=== PATIENT | female | born 1945 | race Caucasian/White ===

== ENCOUNTER → 2021-01-17 | Outpatient (CLI) | payer OTHER ==
[~2021-01-17] MED LIST: CRESTOR10 MG PO; DELSYM30 MG/5 M1; DITROPAN XL5 M1; DULERA 100 MCG/13 GM; FIRST-OMEPR2 MG/1 ML; HYDROXYZINE HCL25 M2 GT; IMDUR 30 MG TAB30 M1 PO; LIPITOR40 MG PO; LOPRESSOR25 PO; NITROGLYCERIN0.4 MG SUBLING; NORCO 5-325 TA1 EACH PO; OXYBUTIN PO; OXYBUTYNIN 5 MG5 M2 PO; PERCOCET 5-3251 EACH PO; PLAVIX 75 MG TA75 M1 PO; PRILOSEC 10MG C10 M1 PO; PROTONIX40 M1 PO; REQUIP 1 MG TABL1 M1 PO; XOPENEX0.31 MG/3
[2021-01-17 10:26] LABS: CREATININE 0.9 mg/dL (0.6-1.0)
== END ==
LOC: CAT 09:34
PROVIDERS: ATTEND Surgery Vascular Surgery
DX: I65.23 Occlusion and stenosis of bilateral carotid arteries (principal); I67.82 Cerebral ischemia; G31.89 Other specified degenerative diseases of nervous system; I70.0 Atherosclerosis of aorta; J43.9 Emphysema, unspecified

== ENCOUNTER → 2021-01-29 | Outpatient (CLI) | payer OTHER ==
[~2021-01-29] MED LIST changes: +ASA81BEC PO; +CHLOR-TABLET4 MG PO; +LIPITOR 20 MG T20 M1 PO; +MUPIROCIN1 GM NARES; +PLAVIX 75 MG TA75 MG PO
[2021-01-29 11:34] LABS: URINE BILIRUBIN NEGATIVE (Negative); URINE BLOOD 2+ (Negative); URINE CLARITY CLEAR; URINE COLOR YELLOW; URINE GLUCOSE-RANDOM* NEGATIVE (Negative); URINE KETONES NEGATIVE (Negative); URINE LEUKOCYTES-REFLEX TRACE (Negative); URINE NITRITE-REFLEX NEGATIVE (Negative); URINE PROTEIN (DIPSTICK) NEGATIVE (Negative); URINE UROBILINOGEN 0.2 E.U./dl (0.2-1.0)
[2021-01-29 11:36] LABS: ABSOLUTE NEUTROPHILS 6.1 thou/uL (1.4-8.2); BASOPHILS 0.8 % (0.0-2.0); EOSINOPHILS 1.1 % (0.0-3.0); HEMATOCRIT 41.2 % (37.0-47.0); HEMOGLOBIN 13.4 gm/dL (12.0-15.0); LYMPHOCYTES 25.7 % (24.0-44.0); MCH 28.7 pg (26.0-34.0); MCHC 32.6 g/dL (28.0-37.0); MONOCYTES 5.7 % (1.0-8.0); PLATELET COUNT 333 thou/uL (150-400); POLYS 66.7 % (36.0-66.0); RBC 4.68 mil/uL (4.20-5.00); RDW 15.8 % (10.5-14.5); WBC 9.1 thou/uL (4.0-11.0)
[2021-01-29 11:45] LABS: BACTERIA-REFLEX 1-9 Few /HPF (None Seen); CASTS None Seen /LPF (None Seen); CRYSTALS None Seen /LPF (None Seen); SQUAMOUS 0-3 Few /LPF (0-3); URINE RBC 3-10 Few /HPF (NONE SEEN); URINE WBC-REFLEX 0-5 Rare /HPF (0-5)
[2021-01-29 11:47] LABS: APTT 28.3 Seconds (24.5-32.8); INR 0.95; PROTIME 10.4 Seconds (10.5-12.1)
[2021-01-29 11:48] LABS: ALBUMIN 3.9 g/dL (3.4-5.0); CALCIUM 9.8 mg/dL (8.5-10.1); CREATININE 0.8 mg/dL (0.6-1.0); POTASSIUM 3.7 mmol/L (3.5-5.1); TOTAL BILIRUBIN 0.3 mg/dL (0.2-1.0); TOTAL PROTEIN 7.7 g/dL (6.4-8.2)
== END ==
LOC: PAC 10:41
PROVIDERS: ATTEND Surgery Vascular Surgery
DX: Z01.818 Encounter for other preprocedural examination (principal); I65.29 Occlusion and stenosis of unspecified carotid artery

== ENCOUNTER 2021-02-21 06:13 | Inpatient (IN) | payer OTHER ==
[~2021-02-21] VITALS: Ht 157.5 cm; Wt 55.3 kg
[2021-02-21 07:34] VITALS: BP 145/58
[2021-02-21 13:22] VITALS: BP 113/44
--- NOTE | 2021-02-21 14:28 | NUR ---
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 FOR EtCO2 NASAL CANNULA.--VW
[2021-02-21 14:43] LABS: BE(vivo) -4.9 mmol/L (-2 to +3); PO2 91.3 mmHg (80.0-100.0); pH 7.317 (7.360-7.450); sO2 96.4 % (92.0-98.0)
--- NOTE | 2021-02-21 14:58 | O ---
[facility] [place] [address] OPERATIVE REPORT Name: CHRISTINA MARMOLEJO Room #: 251-P ADM IN M.R.#: [id number] Admission: 02/21/21 Attend Phys: Nicolás Ribeiro MD Discharge: Date of : 49 Report #: [id number] THIS REPORT FOR: cc: Jessica Mccann MD, Katrina MD Forman,Nicolás Handley MD ~ DATE OF SERVICE: 02/21/2021 PREOPERATIVE DIAGNOSIS: Left carotid artery stenosis. POSTOPERATIVE DIAGNOSIS: Left carotid artery stenosis. OPERATION: Left carotid endarterectomy with patch closure. SURGEON: Nicolás Ribeiro MD CIGAR INSPECTOR: HANY Burk. ANESTHESIA: General. INDICATIONS: The patient is a 75-year-old with high-grade left internal carotid artery stenosis. Right side has more trivial disease. The patient was asymptomatic and the lesion was found in the evaluation of her coronary disease. FINDINGS AND TECHNIQUE: After general anesthesia was established, an oblique left neck incision was made. Common facial vein was divided. Common internal and external carotid arteries and the superior thyroid artery were identified and controlled. 10,000 units of heparin were given. Continuous electroencephalographic monitoring was performed during the operation. When the carotid vessels were occluded, no EEG changes were noted. A carotid arteriotomy was made. The endarterectomy was performed without creating a distal flap. Neointima was inspected and all loose debris was removed. Tacking sutures were placed at the transition zone. When the endarterectomy was deemed to be satisfactory, the arteriotomy was closed with thin walled pericardial patch and running Prolene. Prior to finishing the closure, the carotid vessels were backbled and the artery was irrigated with heparinized saline. Flow established first through the external and the internal carotid artery. Protamine was given to reverse the heparin. When hemostasis was satisfactory, a [place] drain was brought out through the bottom pole of the incision. The wound was closed in layers. The patient was taken to the recovery area in [facility] [address] [place] [address] OPERATIVE REPORT Name: CHRISTINA MARMOLEJO Room #: 251-P [facility] IN .R.#: [id number] Admission: 02/21/21 Attend Phys: Nicolás Ribeiro MD Discharge: Date of : 49 Report #: [id number] condition having tolerated the procedure well and her neurologic progress was monitored there. All counts were reported as correct. <ELECTRONICALLY SIGNED> By: Nicolás Ribeiro MD 02/21/21 1458 1001 1012 Nicolás Ribeiro MD /nt
[2021-02-21 16:00] VITALS: BP 116/45
[2021-02-21 20:02] VITALS: BP 100/40
[2021-02-22] VITALS (11 sets, daily range): BP systolic 114–170; BP diastolic 35–54
[2021-02-22 05:21] LABS: HEMATOCRIT 31.9 % (37.0-47.0); HEMOGLOBIN 10.5 gm/dL (12.0-15.0); MCHC 32.9 g/dL (28.0-37.0); MCV 88.2 fL (80.0-100.0); RBC 3.61 mil/uL (4.20-5.00); RDW 15.8 % (10.5-14.5); WBC 11.9 thou/uL (4.0-11.0)
[2021-02-22 06:22] LABS: CALCIUM 8.2 mg/dL (8.5-10.1); CREATININE 0.6 mg/dL (0.6-1.0)
--- NOTE | 2021-02-22 15:13 | NUR ---
met with patient and dtr at bedside. Patient reports lives in independent home alone. Uses no assistive device. Reports she does all her cooking, cleaning, yard work and laundry. She cont to drive. PCP Dr Jessica Mccann. Dtr at bedside. Anticipate no needs at nv.
--- NOTE | 2021-02-22 15:45 | NUR ---
ALERT AND ORIENTED, UP TO THE CHAIR WITH MINIMAL ASSIST. VITALS STABLE. C/O NOT BEING ABLE TO SWALLOW THIS MORNING, S.T CONSULTED AND EVALUATED PATIENT. THIS AFTERNOON PATIENT STATES HER THROAT IS FEELING BETTER AND IS ABLE TO SWALLOW ICE CHIPS AND WATER. A-LINE AND RAMIREZ DC'D EARLIER TODAY AND ABLE TO VOID IN THE BATHROOM. DR. CARRILLO AND JA ROUNDED THIS AFTERNOON AND PATIENT STATED SHE WANTED TO GO HOME. DC ORDERS RECEIVED. PATIENT'S SISTER AT THE BEDSIDE. JA GAVE PATIENT VERBAL TEACHING ON INCISION DRESSING AND JENNIFER CARE WHEN AT HOME AND WHEN TO CALL OFFICE. WILL COMPLETED DC PAPER WORK AND TEACHING AND DC PATIENT.
[2021-02-22] MEDS ORDERED: ACETAMINOPHEN325 M1 PO (15:47)
--- NOTE | 2021-02-22 16:27 | NUR ---
DC INSTRUCTIONS GIVEN TO PATIENT AND HER SISTER. Rajan GUERRIER.
--- NOTE | 2021-02-22 17:07 | PATH ---
[facility] [address] [place] [address] PATHOLOGY RPT PROCEDURE Name: YESI MARMOLEJO Room #: 251-P [facility] IN M.R.#: [id number] Admission: 02/21/21 Date of : 49 Discharge: 02/22/21 Report #: [id number] Path Case #: [id number] [facility] Accession Number: [id number] . 01 Material submitted: . artery - LEFT CAROTID PLAQUE. Modifiers: left . 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 (IUV:production shift supervisor; 02/22/2021) MBR 02/22/2021 1546 Local . 02 Electronically signed: . Khushobo Myers MD, Pathologist NPI- [id number] . 01 Gross description: . The specimen is received in formalin, labeled "Frike, Yesi and left carotid plaque". It consists of multiple white-yellow, irregular focally calcified tissue segments ranging from 0.1-4.0 cm. The largest fragment appears as a focally disrupted tubular segment measuring 4.0 cm long by 0.5 cm in diameter. The lumen appears 95% occluded. Matrix Worker sections are submitted in A1 following decalcification. (MRF; 02/21/2021) MFE/MFE 02/21/2021 [facility]6 Local . 02 Pathologist provided ICD-10: I77.9 . 02 CPT . 999384, [id number] Specimen Comment: A courtesy copy of this report has been sent to [phone] Specimen Comment: Report sent to Performed at: [address], [place] [id number] MD David Rand MD Phone: [phone] Performed at: [address] [id number] MD Khushboo Myers MD Phone: [phone]
--- NOTE | 2021-02-22 18:07 | NUR ---
PATIENT DISCHARGED ACCOMPANIED BY SISTER, ESCORTED TO CAR VIA WHEELCHAIR BY RN
== END 2021-02-22 16:51 | disposition home or self-care (01) | DRG 39 ==
LOC: ICU 06:13 → TBA 06:13 → OR 10:37 → EDSTATUS 13:26 → ICU 13:34 → OR 13:38 → PRE 18:03 → ICU 02-22 16:51
PROVIDERS: Physician Assistant; ADMIT Surgery Vascular Surgery; ATTEND Surgery Vascular Surgery
PROC: 03UL0KZ Supplement Left Internal Carotid Artery with Nonautologous Tissue Substitute, Open Approach (ICD-10-PCS; principal; 2021-02-21)
PROC: 03CL0ZZ Extirpation of Matter from Left Internal Carotid Artery, Open Approach (ICD-10-PCS; principal; 2021-02-21)
DX: I65.22 Occlusion and stenosis of left carotid artery (principal); Z79.82 Long term (current) use of aspirin; Z79.899 Other long term (current) drug therapy; Z88.6 Allergy status to analgesic agent; Z88.1 Allergy status to other antibiotic agents; Z88.8 Allergy status to other drugs, medicaments and biological substances; Z90.49 Acquired absence of other specified parts of digestive tract; Z90.710 Acquired absence of both cervix and uterus
CPT/HCPCS: 10078; 47375; 48889; 50010; 50101; 50386; 50403; 50455; 51301; 52287; 54118; 56524; 56526; 56528; 56534; 58585; 58731; 58857; 62110; 62900; 70005

== ENCOUNTER 2021-02-27 16:18 | Inpatient (IN) | payer OTHER ==
[~2021-02-27] VITALS: Ht 157.5 cm; Wt 54.4 kg
[~2021-02-27 16:18] MED LIST changes: +ACETAMINOPHEN325 M1 PO
[2021-02-27 16:40] VITALS: BP 137/58
[2021-02-27 17:46] LABS: ABSOLUTE NEUTROPHILS 6.7 thou/uL (1.4-8.2); BASOPHILS 1.4 % (0.0-2.0); EOSINOPHILS 1.1 % (0.0-3.0); HEMATOCRIT 34.8 % (37.0-47.0); HEMOGLOBIN 11.3 gm/dL (12.0-15.0); LYMPHOCYTES 19.5 % (24.0-44.0); MCH 28.7 pg (26.0-34.0); MCHC 32.5 g/dL (28.0-37.0); MCV 88.5 fL (80.0-100.0); MONOCYTES 8.4 % (1.0-8.0); PLATELET COUNT 317 thou/uL (150-400); POLYS 69.6 % (36.0-66.0); RBC 3.93 mil/uL (4.20-5.00); RDW 15.3 % (10.5-14.5); WBC 9.6 thou/uL (4.0-11.0)
[2021-02-27 17:51] LABS: CALCIUM 10.3 mg/dL (8.5-10.1); CREATININE 0.9 mg/dL (0.6-1.0); POTASSIUM 3.9 mmol/L (3.5-5.1)
[2021-02-27 17:58] LABS: ALBUMIN 3.1 g/dL (3.4-5.0); TOTAL BILIRUBIN 0.3 mg/dL (0.2-1.0); TOTAL PROTEIN 7.1 g/dL (6.4-8.2)
[2021-02-27 20:50] VITALS: BP 185/55
[2021-02-27 21:09] VITALS: BP 144/72
--- NOTE | 2021-02-27 22:19 | NUR ---
PT ADMITTED TO THE UNIT AT 2109. PT IS A/O X4 AND IS UP WITH ASSISTANCE. ROOM AIR. VSS. AFEBRILE. ADMISSION IN COMPLETED. PT WAS EDUCATED ON BED CONTROLS AND USE OF THE CALL LIGHT. PT HOME MEDICATION BAG TAKEN TO PHARMACY WITH SLIP TAPED TO FRONT OF CHART. ADMISSION TELE STRIP AND CONSENTS PLACED IN BAG. PT IS NPO AT MIDNIGHT AWAITING POSSIBLE DIAGNOSTICS IN THE AM. PT IS PLEASANT AND COOPERATIVE. CALLS OUT APPROPRIATELY. IV PATENT AND IV FLUIDS ARE INFUSING. DRSG PLACED IN ED AND IS C/D/I. FALL PRECAUTIONS IN PLACE, CALL LIGHT IS WITHIN REACH. WILL CONTINUE TO MONITOR.
[2021-02-28 03:53] LABS: CALCIUM 8.6 mg/dL (8.5-10.1); CREATININE 0.7 mg/dL (0.6-1.0); POTASSIUM 3.9 mmol/L (3.5-5.1)
[2021-02-28 10:56] VITALS: BP 168/56
--- NOTE | 2021-02-28 12:22 | NUR ---
PT ADMITTED RELATED TO DYSPHAGIA, S/P CAROTID ENDARTERECTOMY. CM REVIEWED CHART AND SPOKE WITH CARE TEAM. CM MET WITH PT AT BEDSIDE THIS DAY. PT APPEARED TO BE A&O X4. CM ROLE INTRODUCED. PT INDICATED SHE LIVES ALONE IN A HOUSE WITH 5 STEPS TO ENTER AND NO STEPS INSIDE. PT INDICATED SHE HAD BEEN INDEPEDNENT WITH GAIT AND ADLS THROW OUT CLERK. PT INDICATED NO HH OR OP THERAPY HX. PT INDICATED SHE PLANS TO RETURN HOME ONCE MEDICALLY STABLE. GERARDO, GI, ENT, AND ST CONSULTED. PT ON A LIQUID DIET AT THIS TIME. CM FOLLOWING REGARDING DC PLANNING.
--- NOTE | 2021-02-28 17:12 | NUR ---
ASSUMED CARE OF PATIENT AT SHIFT CHANGE. ASSESSMENT CHARTED. MEDS ADMINISTERED PER EMAR. VSS. PATIENT IS A&OX4 AND SBA. DENIES PAIN OR DISCOMFORT. WENT FOR VIDEO STUDY; SEE NOTES. DR. SHER SAW PATIENT AND MODIFIED DIET UNTIL INFLAMMATION GOES DOWN FROM SX. PATIENT AWARE AND COMPLIANT. HOSPITALIST UPDATED. PATIENT OTHERWISE APPEARS MEDICALLY STABLE. WILL CONTINUE TO MONITOR
[2021-02-28 17:52] VITALS: BP 168/56
[2021-02-28 17:53] VITALS: BP 146/54
== END 2021-02-28 19:03 | disposition home or self-care (01) | DRG 392 ==
LOC: ER 16:18 → EROBS 20:01 → 4W 20:01
PROVIDERS: Emergency Medicine; Nurse Practitioner Family; ADMIT Hospitalist; ATTEND Hospitalist
DX: R13.19 Other dysphagia (principal); K22.10 Ulcer of esophagus without bleeding; Z20.822 Contact with and (suspected) exposure to COVID-19; I25.10 Atherosclerotic heart disease of native coronary artery without angina pectoris; I73.9 Peripheral vascular disease, unspecified; K21.9 Gastro-esophageal reflux disease without esophagitis; G25.81 Restless legs syndrome; E78.5 Hyperlipidemia, unspecified; R53.81 Other malaise; K59.00 Constipation, unspecified; F17.210 Nicotine dependence, cigarettes, uncomplicated; Z60.2 Problems related to living alone; Z82.49 Family history of ischemic heart disease and other diseases of the circulatory system; Z80.8 Family history of malignant neoplasm of other organs or systems; Z90.49 Acquired absence of other specified parts of digestive tract; Z90.710 Acquired absence of both cervix and uterus; I25.2 Old myocardial infarction; Z88.6 Allergy status to analgesic agent; Z95.5 Presence of coronary angioplasty implant and graft; Z88.1 Allergy status to other antibiotic agents; Z88.8 Allergy status to other drugs, medicaments and biological substances
CPT/HCPCS: 10045